=== PATIENT | male | born 1960 | race Caucasian/White ===

== ENCOUNTER 2020-09-25 07:57 | Outpatient (REF) | payer OTHER, SELFPAY ==
[2020-09-25 08:42] LABS: MANUAL DIFF FLAG NO
[2020-09-25 08:45] LABS: Basophils Percent Auto 0.7 % (0-2); Eosinophils Absolute Auto 0.1 X10*3/uL (0.0-0.4); Hematocrit 48.2 % (42-52); Hemoglobin 15.9 g/dl (14.0-18.0); Imm Gran Abs Auto 0.01 X10*3/uL (0.00-0.03); Imm Gran Pct Auto 0.2 % (0.0-0.4); Lymphocytes Absolute Auto 1.6 X10*3/uL (1.2-4.9); Lymphocytes Percent Auto 27.1 % (20-40); Mean Corpuscular Hemoglobin 31.9 pg (27.0-33.0); Mean Corpuscular Volume 96.8 fL (80-98); Mean Platelet Volume 10.2 fL (9.4-12.4); Monocytes Absolute Auto 0.5 X10*3/uL (0.1-1.2); Monocytes Percent Auto 8.9 % (2-11); Neutrophils Absolute Auto 3.7 X10*3/uL (2.0-8.3); Neutrophils Percent Auto 61.1 % (45-73); Platelet Count 176 X10*3/uL (160-400); Red Blood Count 4.98 X10*6/uL (4.60-5.80); Red Cell Distribution Width 12.3 % (11.0-16.0)
[2020-09-25 09:02] LABS: Glucose Urine UA NEG (NEG); Leukocyte Esterase Urine NEG (NEG); Nitrite Urine NEG (NEG); Specific Gravity - Urine >= 1.030 (1.005-1.025); Urine Blood NEG (NEG); Urine Ketones NEG (NEG); Urine Protein NEG (NEG-TRACE)
[2020-09-25 09:04] LABS: Appearance Urine CLEAR; Color Urine YELLOW
[2020-09-25 09:17] LABS: Alanine Aminotransferase 23 U/L (0-40); Albumin Level 4.8 g/dL (3.5-5.0); Alkaline Phosphatase 66 U/L (39-117); Anion Gap 12 (12-20); Aspartate Amino Transferase 21 U/L (5-37); Bilirubin Total 0.4 mg/dL (0.0-1.0); Blood Urea Nitrogen 9 mg/dL (9-16); Calcium 9.5 mg/dL (8.4-10.2); Carbon Dioxide 29 mmol/L (22-29); Chloride 105 mmol/L (96-108); Cholesterol 176 mg/dL; Estimated Glomerular Filt Rate > 60; Glucose Fasting 84 mg/dL (60-99); HDL Cholesterol 42 mg/dL; LDL Cholesterol Calculated 118 mg/dl; Potassium 4.5 mmol/l (3.3-5.1); Sodium 141 mmol/L (135-145); Triglycerides 81 mg/dL
== END 2020-09-25 07:58 | disposition home or self-care (01) ==
LOC: HO.LAB 07:57
PROVIDERS: PCP Internal Medicine; Visit Provider Internal Medicine
DX: D69.6 Thrombocytopenia, unspecified (principal); Z00.00 Encounter for general adult medical examination without abnormal findings
CPT/HCPCS: 36415; 80053; 80061; 81003; 85025

== ENCOUNTER 2021-11-14 10:36 | Outpatient (REF) | payer OTHER, SELFPAY ==
[2021-11-14 10:41] LABS: MANUAL DIFF FLAG NO
[2021-11-14 11:14] LABS: Basophils Percent Auto 0.8 % (0-2); Eosinophils Absolute Auto 0.2 X10*3/uL (0.0-0.4); Eosinophils Percent Auto 3.4 % (0-4); Hematocrit 45.5 % (42.0-52.0); Lymphocytes Absolute Auto 1.6 X10*3/uL (1.2-4.9); Lymphocytes Percent Auto 32.9 % (20-40); Mean Platelet Volume 10.9 fL (9.4-12.4); Monocytes Absolute Auto 0.5 X10*3/uL (0.1-1.2); Monocytes Percent Auto 9.9 % (2-11); Neutrophils Absolute Auto 2.6 x10*3/uL (2.0-8.3); Platelet Count 167 X10*3/uL (160-400); Red Blood Count 4.69 X10*6/uL (4.60-5.80); Red Cell Distribution Width 13.1 % (11.0-16.0)
[2021-11-14 11:22] LABS: Appearance Urine CLEAR; Color Urine YELLOW; Glucose Urine UA NEG (NEG); Leukocyte Esterase Urine NEG (NEG); Nitrite Urine NEG (NEG); PH 5.5 (5.0-8.0); Specific Gravity - Urine >= 1.030 (1.005-1.025); Urine Blood NEG (NEG); Urine Ketones 5 MG/DL (NEG); Urine Protein NEG (NEG-TRACE)
[2021-11-14 11:53] LABS: Alanine Aminotransferase 27 U/L (0-40); Albumin Level 4.3 g/dL (3.5-5.0); Alkaline Phosphatase 76 U/L (39-117); Anion Gap 11 (12-20); Aspartate Amino Transferase 25 U/L (5-37); Bilirubin Total 0.6 mg/dL (0.0-1.0); Blood Urea Nitrogen 10 mg/dL (9-16); Calcium 9.5 mg/dL (8.4-10.2); Carbon Dioxide 29 mmol/L (22-29); Chloride 104 mmol/L (96-108); Cholesterol 159 mg/dL; Estimated Glomerular Filt Rate > 60; Glucose Fasting 86 mg/dL (60-99); HDL Cholesterol 36 mg/dL; LDL Cholesterol Calculated 93 mg/dl; Potassium 4.4 mmol/L (3.3-5.1); Sodium 140 mmol/L (135-145); Total Protein 6.8 g/dL (6.5-8.0); Triglycerides 153 mg/dL
[2021-11-14 11:57] LABS: PSA,Total (Free>4and<10) 1.08 ng/mL (0.00-4.00)
== END 2021-11-14 10:37 | disposition home or self-care (01) ==
LOC: HO.LNP 10:36
PROVIDERS: Visit Provider Internal Medicine
DX: Z00.00 Encounter for general adult medical examination without abnormal findings (principal); Z12.5 Encounter for screening for malignant neoplasm of prostate; D69.6 Thrombocytopenia, unspecified
CPT/HCPCS: 80053; 80061; 81003; 84153; 85025

== ENCOUNTER 2022-11-24 10:57 | Outpatient (REF) | payer OTHER, SELFPAY ==
[2022-11-24 11:00] LABS: MANUAL DIFF FLAG NO
[2022-11-24 11:23] LABS: Basophils Absolute Auto 0.1 X10*3/uL (0.0-0.2); Basophils Percent Auto 1.1 % (0-2); Eosinophils Absolute Auto 0.2 X10*3/uL (0.0-0.4); Eosinophils Percent Auto 4.4 % (0-4); Hematocrit 46.6 % (42.0-52.0); Hemoglobin 15.6 g/dl (14.0-18.0); Imm Gran Abs Auto 0.01 X10*3/uL (0.00-0.03); Imm Gran Pct Auto 0.2 % (0.0-0.4); Lymphocytes Absolute Auto 1.6 X10*3/uL (1.2-4.9); Lymphocytes Percent Auto 33.6 % (20-40); Mean Corpuscular HGB Conc 33.5 g/dl (31.0-36.0); Mean Corpuscular Hemoglobin 32.4 pg (27.0-33.0); Mean Corpuscular Volume 96.9 fL (80.0-98.0); Mean Platelet Volume 10.8 fL (9.4-12.4); Monocytes Absolute Auto 0.4 X10*3/uL (0.1-1.2); Monocytes Percent Auto 8.9 % (2-11); Neutrophils Absolute Auto 2.5 x10*3/uL (2.0-8.3); Neutrophils Percent Auto 51.8 % (45-73); Platelet Count 165 X10*3/uL (160-400); Red Blood Count 4.81 X10*6/uL (4.60-5.80); Red Cell Distribution Width 12.5 % (11.0-16.0); White Blood Count 4.7 X10*3/uL (4.8-10.8)
[2022-11-24 11:55] LABS: Appearance Urine Clear; Color Urine Yellow; Glucose Urine UA Negative (Negative); Leukocyte Esterase Urine Trace (Negative); Nitrite Urine Negative (Negative); PH 7.5 (5.0-9.0); UMIC TRIGGER UACC YES; Urine Blood Negative (Negative); Urine Ketones Negative (Negative); Urine Protein Negative (Neg-Trace)
[2022-11-24 12:00] LABS: Bacteria Urine None Seen (None Seen); Hyaline Casts Urine 0-2 /LPF (0-2); RBC Urine 0-2 /HPF (0-2); Squamous Epithelial Cell Urine 0-2 /HPF (0-2); WBC Urine 0-5 /HPF (0-5)
[2022-11-24 12:33] LABS: Alanine Aminotransferase 28 U/L (0-40); Albumin Level 4.2 g/dL (3.5-5.0); Alkaline Phosphatase 73 U/L (39-117); Anion Gap 8 (12-20); Aspartate Amino Transferase 22 U/L (5-37); Bilirubin Total 1.2 mg/dL (0.0-1.0); Blood Urea Nitrogen 8 mg/dL (9-16); Calcium 9.2 mg/dL (8.4-10.2); Carbon Dioxide 30 mmol/L (22-29); Chloride 108 mmol/L (96-108); Cholesterol 121 mg/dL; Estimated Glomerular Filt Rate > 60; Glucose Fasting 90 mg/dL (60-99); HDL Cholesterol 37 mg/dL; LDL Cholesterol Calculated 72 mg/dl; Potassium 4.1 mmol/L (3.3-5.1); Sodium 142 mmol/L (135-145); Total Protein 6.3 g/dL (6.5-8.0); Triglycerides 63 mg/dL
[2022-11-24 12:37] LABS: PSA,Total (Free>4and<10) 0.81 ng/mL (0.00-4.00)
== END 2022-11-24 10:58 | disposition home or self-care (01) ==
LOC: HO.LNP 10:57
PROVIDERS: Visit Provider Internal Medicine
DX: Z00.00 Encounter for general adult medical examination without abnormal findings (principal); Z12.5 Encounter for screening for malignant neoplasm of prostate; D69.6 Thrombocytopenia, unspecified
CPT/HCPCS: 80053; 80061; 81001; 81003; 84153; 85025

== ENCOUNTER 2023-05-14 11:12 | Outpatient (REF) | payer OTHER, SELFPAY ==
[2023-05-14 13:39] LABS: Cholesterol 116 mg/dL; HDL Cholesterol 40 mg/dL; LDL Cholesterol Calculated 65 mg/dl; Triglycerides 57 mg/dL
[2023-05-14 13:40] LABS: Alanine Aminotransferase 34 U/L (0-40); Albumin Level 4.3 g/dL (3.5-5.0); Alkaline Phosphatase 67 U/L (39-117); Aspartate Amino Transferase 30 U/L (5-37); Bilirubin Direct 0.3 mg/dL (0.0-0.5); Bilirubin Total 0.7 mg/dL (0.0-1.0); Total Protein 6.8 g/dL (6.5-8.0)
== END 2023-05-14 11:13 | disposition home or self-care (01) ==
LOC: HO.LNP 11:12
PROVIDERS: Visit Provider Internal Medicine
DX: I65.29 Occlusion and stenosis of unspecified carotid artery (principal)
CPT/HCPCS: 80061; 80076

== ENCOUNTER 2023-11-30 11:06 | Outpatient (REF) | payer OTHER, SELFPAY ==
[2023-11-30 11:08] LABS: MANUAL DIFF FLAG NO
[2023-11-30 11:18] LABS: Appearance Urine Clear; Color Urine Yellow; Glucose Urine UA Negative (Negative); Leukocyte Esterase Urine Negative (Negative); Nitrite Urine Negative (Negative); Urine Blood Negative (Negative); Urine Ketones Negative (Negative); Urine Protein Negative (Neg-Trace)
[2023-11-30 11:20] LABS: Basophils Percent Auto 0.8 % (0-2); Eosinophils Absolute Auto 0.2 X10*3/uL (0.0-0.4); Eosinophils Percent Auto 3.7 % (0-4); Hematocrit 47.7 % (42.0-52.0); Hemoglobin 15.9 g/dl (14.0-18.0); Imm Gran Abs Auto 0.01 X10*3/uL (0.00-0.03); Imm Gran Pct Auto 0.2 % (0.0-0.4); Lymphocytes Absolute Auto 1.6 X10*3/uL (1.2-4.9); Lymphocytes Percent Auto 30.3 % (20-40); Mean Corpuscular HGB Conc 33.3 g/dl (31.0-36.0); Mean Corpuscular Hemoglobin 32.3 pg (27.0-33.0); Mean Corpuscular Volume 96.8 fL (80.0-98.0); Mean Platelet Volume 10.5 fL (9.4-12.4); Monocytes Absolute Auto 0.5 X10*3/uL (0.1-1.2); Monocytes Percent Auto 9.4 % (2-11); Neutrophils Absolute Auto 2.9 x10*3/uL (2.0-8.3); Neutrophils Percent Auto 55.6 % (45-73); Platelet Count 164 X10*3/uL (160-400); Red Blood Count 4.93 X10*6/uL (4.60-5.80); Red Cell Distribution Width 12.8 % (11.0-16.0); White Blood Count 5.1 X10*3/uL (4.8-10.8)
[2023-11-30 11:23] LABS: Bacteria Urine None Seen (None Seen); Hyaline Casts Urine 0-2 /LPF (0-2); RBC Urine 0-2 /HPF (0-2); Squamous Epithelial Cell Urine 0-2 /HPF (0-2); WBC Urine 0-5 /HPF (0-5)
[2023-11-30 11:28] LABS: Alanine Aminotransferase 26 U/L (0-40); Albumin Level 4.2 g/dL (3.5-5.0); Alkaline Phosphatase 74 U/L (39-117); Anion Gap 12 (12-20); Aspartate Amino Transferase 19 U/L (5-37); Bilirubin Total 0.7 mg/dL (0.0-1.0); Blood Urea Nitrogen 11 mg/dL (9-16); Calcium 9.3 mg/dL (8.4-10.2); Carbon Dioxide 29 mmol/L (22-29); Chloride 106 mmol/L (96-108); Cholesterol 124 mg/dL (<200); Estimated Glomerular Filt Rate > 60; Glucose Fasting 86 mg/dL (60-99); HDL Cholesterol 44 mg/dL (>40); LDL Cholesterol Calculated 66 mg/dL (<100); Potassium 4.3 mmol/L (3.3-5.1); Sodium 143 mmol/L (135-145); Total Protein 6.8 g/dL (6.5-8.0); Triglycerides 73 mg/dL (<150)
[2023-11-30 11:50] LABS: PSA,Total (Free>4and<10) 1.09 ng/mL (0.00-4.00)
== END 2023-11-30 11:07 | disposition home or self-care (01) ==
LOC: HO.LNP 11:06
PROVIDERS: Visit Provider Internal Medicine
DX: Z00.00 Encounter for general adult medical examination without abnormal findings (principal); Z12.5 Encounter for screening for malignant neoplasm of prostate; D69.6 Thrombocytopenia, unspecified
CPT/HCPCS: 80053; 80061; 81001; 84153; 85025

== ENCOUNTER 2024-06-06 10:15 | Outpatient (REF) | payer OTHER, SELFPAY ==
[2024-06-06 10:17] LABS: MANUAL DIFF FLAG NO
[2024-06-06 11:07] LABS: Basophils Absolute Auto 0.1 X10*3/uL (0.0-0.2); Basophils Percent Auto 1.2 % (0-2); Eosinophils Absolute Auto 0.2 X10*3/uL (0.0-0.4); Eosinophils Percent Auto 3.5 % (0-4); Hematocrit 47.3 % (42.0-52.0); Hemoglobin 15.3 g/dl (14.0-18.0); Imm Gran Abs Auto 0.01 X10*3/uL (0.00-0.03); Imm Gran Pct Auto 0.2 % (0.0-0.4); Lymphocytes Absolute Auto 1.7 X10*3/uL (1.2-4.9); Lymphocytes Percent Auto 33.6 % (20-40); Mean Corpuscular HGB Conc 32.3 g/dl (31.0-36.0); Mean Corpuscular Hemoglobin 31.9 pg (27.0-33.0); Mean Corpuscular Volume 98.7 fL (80.0-98.0); Mean Platelet Volume 10.8 fL (9.4-12.4); Monocytes Absolute Auto 0.5 X10*3/uL (0.1-1.2); Monocytes Percent Auto 10.4 % (2-11); Neutrophils Absolute Auto 2.6 x10*3/uL (2.0-8.3); Neutrophils Percent Auto 51.1 % (45-73); Platelet Count 162 X10*3/uL (160-400); Red Blood Count 4.79 X10*6/uL (4.60-5.80); White Blood Count 5.1 X10*3/uL (4.8-10.8)
[2024-06-06 11:28] LABS: Appearance Urine Clear; Color Urine Yellow; Glucose Urine UA Negative (Negative); Leukocyte Esterase Urine Negative (Negative); Nitrite Urine Negative (Negative); PH 5.5 (5.0-9.0); Urine Blood Negative (Negative); Urine Ketones Negative (Negative); Urine Protein Negative (Neg-Trace)
[2024-06-06 11:34] LABS: Alanine Aminotransferase 27 U/L (0-40); Albumin Level 4.2 g/dL (3.5-5.0); Alkaline Phosphatase 70 U/L (39-117); Anion Gap 9 (12-20); Aspartate Amino Transferase 22 U/L (5-37); Bilirubin Total 0.7 mg/dL (0.0-1.0); Blood Urea Nitrogen 10 mg/dL (9-16); Calcium 9.8 mg/dL (8.4-10.2); Carbon Dioxide 31 mmol/L (22-29); Chloride 107 mmol/L (96-108); Cholesterol 118 mg/dL (<200); Estimated Glomerular Filt Rate > 60; Glucose Fasting 100 mg/dL (60-99); HDL Cholesterol 45 mg/dL (>40); LDL Cholesterol Calculated 61 mg/dL (<100); Potassium 4.2 mmol/L (3.3-5.1); Sodium 143 mmol/L (135-145); Total Protein 6.7 g/dL (6.5-8.0); Triglycerides 64 mg/dL (<150)
[2024-06-06 11:35] LABS: Bacteria Urine None Seen (None Seen); Hyaline Casts Urine 0-2 /LPF (0-2); RBC Urine 0-2 /HPF (0-2); Squamous Epithelial Cell Urine 0-2 /HPF (0-2); WBC Urine 0-5 /HPF (0-5)
[2024-06-06 11:43] LABS: PSA,Total (Free>4and<10) 1.16 ng/mL (0.00-4.00)
== END 2024-06-06 10:16 | disposition home or self-care (01) ==
LOC: HO.LNP 10:15
PROVIDERS: Visit Provider Internal Medicine
DX: Z00.00 Encounter for general adult medical examination without abnormal findings (principal); D69.6 Thrombocytopenia, unspecified; Z12.5 Encounter for screening for malignant neoplasm of prostate
CPT/HCPCS: 80053; 80061; 81001; 84153; 85025

== ENCOUNTER 2024-11-28 10:27 | Outpatient (REF) | payer OTHER, SELFPAY ==
[2024-11-28 10:32] LABS: MANUAL DIFF FLAG NO
[2024-11-28 11:06] LABS: Basophils Absolute Auto 0.1 X10*3/uL (0.0-0.2); Basophils Percent Auto 0.9 % (0-2); Eosinophils Absolute Auto 0.1 X10*3/uL (0.0-0.4); Eosinophils Percent Auto 2.3 % (0-4); Hematocrit 47.1 % (42.0-52.0); Hemoglobin 15.5 g/dl (14.0-18.0); Imm Gran Abs Auto 0.01 X10*3/uL (0.00-0.03); Imm Gran Pct Auto 0.2 % (0.0-0.4); Lymphocytes Absolute Auto 1.6 X10*3/uL (1.2-4.9); Lymphocytes Percent Auto 27.8 % (20-40); Mean Corpuscular HGB Conc 32.9 g/dl (31.0-36.0); Mean Corpuscular Volume 97.1 fL (80.0-98.0); Mean Platelet Volume 10.6 fL (9.4-12.4); Monocytes Absolute Auto 0.4 X10*3/uL (0.1-1.2); Monocytes Percent Auto 7.8 % (2-11); Neutrophils Absolute Auto 3.5 x10*3/uL (2.0-8.3); Platelet Count 176 X10*3/uL (160-400); Red Blood Count 4.85 X10*6/uL (4.60-5.80); Red Cell Distribution Width 12.7 % (11.0-16.0); White Blood Count 5.7 X10*3/uL (4.8-10.8)
[2024-11-28 11:10] LABS: Appearance Urine Clear; Color Urine Yellow; Glucose Urine UA Negative (Negative); Leukocyte Esterase Urine Negative (Negative); Nitrite Urine Negative (Negative); Specific Gravity - Urine 1.025 (1.005-1.025); Urine Blood Negative (Negative); Urine Ketones Negative (Negative); Urine Protein Trace mg/dL (Neg-Trace)
[2024-11-28 11:13] LABS: Bacteria Urine None Seen (None Seen); Hyaline Casts Urine 0-2 /LPF (0-2); RBC Urine 0-2 /HPF (0-2); Squamous Epithelial Cell Urine 0-2 /HPF (0-2); WBC Urine 0-5 /HPF (0-5)
--- OUTSIDE RECORDS SUMMARY | 2024-11-28 11:23 | XMS_ITS ---
Author Organization Sam Paulino MD Address [address] [place] [id number] Care Team Providers Care Medical Dir Name Role Phone Sam Paulino Primary Care Provider Allergies No Known Allergies REASON FOR VISIT 6 month, c/o right shoulder pain x 2 months no injury Medications Medication SIG (Take, Route, Frequency, Duration) Notes Start Date End Date Status Atorvastatin Calcium 40 MG TAKE 1 TABLET BY MOUTH EVERY DAY for 30 Active Aspir-Low 81 MG 1 tablet Orally Once a day for 30 day(s) Active Vital Signs Blood pressure systolic 122 mm Hg 06/13/20 24 Blood pressure diastolic 58 mm Hg 024 Height 72 in 06/13/2024 Weight 252 lbs 06/13/2024 BMI 34.17 kg/m2 06/13/2024 weight is up 12 pounds since 05-21-23 Encounters Encounter Location Date Provider Diagnosis Sam Paulino MD [address] [place], [place] [phone] 06/13/2024 Sam Paulino Dysfunction of right rotator cuff M67.911 and Unintended weight gain R63.5 Assessments Encounter Date Diagnosis (ICD Code) Assessment Notes Treatment Notes Treatment Clinical Notes Section Notes 06/13/2024 Dysfunction of right rotator cuff (ICD-10 - M67.911) showed him exercises 06/13/2024 Unintended weight gain (ICD-10 - R63.5) is starting an exercise Plan Of Treatment Treatment Notes Assessment Notes Dysfunction of right rotator cuff showed him exercises Unintended weight gain is starting an ex ercise Next Appt Details Provider Name:Sam Philippe ier, 12/06/2024 08:30:00 AM, [address], [address], [place], [phone], Progress Notes * Alison DCOB:1960 ( 63 yo M)Acc No.[id number]:06/13/2024 Progress Notes Patient:?Farhan Dc Provider:?Sam Paulino MD :1960???Age:63 Y???Sex:Male Lobo e:06/13/2024 Address: [address], [place], [place] Subjective: * Chief Complaints: * ???6 monthC/o right shoulder pain x 2 months no injury * HPI: ???Symptom(s):? patient is a 63 yo male here for 6 month follow p visit,has pain in right shoulder to elbow. not to fingers. for the past 2 months, no specific injury. * ROS:?General/Constitutional:?Denies?Chills.?Denies?Fatigue.?Denies?Fever.?Denies?Headache.?ENT:?Patient denies?decreased sense of smell , any loss of taste , sore throat.?Denies?Sore throat.?Respiratory:?Denies?Cough.?Denies?Shortness of breath at rest.?Denies?Shortness of breath with exertion.?Gastrointestinal:?Denies?Diarrhea.?Denies?Nausea.?Musculoskeletal:?Patient denies?muscle aches.?Peripheral Vascular:?Patient denies?red and blue toes.? * Medical History:? * Surgical History:? * Hospitalization/Major Diagno stic Procedure:? * Medications:?TakingAspir-Low 81 MG Tablet Delayed Release 1 tablet Orally Once a dayAtorvastatin Calcium 40 MG Tablet TAKE 1 TABLET BY MOUTH EVERY DAY Medication List reviewed and reconciled with the patientTaking Aspir-Low 81 MG Tablet Delayed Release 1 tablet Orally Once a dayTaking Atorvastatin Calcium 40 MG Tablet TAKE 1 TABLET BY MOUTH EVERY DAY Medication List reviewed and reconciled with the patient * Allergies:?N.K.D.A.yes[Aller gies Verified] Objective: * Vitals:?Ht: 72, Wt:252, BMI: 34.17, BP:122/58 weight is up 12 pounds since 05-21-23. * Examination: ???General Examination: ?GENERAL APPEARANCE:? alert, well hydrated, in no distress .?HEAD:? normocephalic.?SKIN:? good turgor.?HEART:? regular rate and rhythm, no murmurs, rubs, gallops.?LUNGS:? no wheezes, rales, rhonchi, good air movement, clear to auscultation bilaterally.?MUSCULOSKELETAL:? good range of motion of shoulder.? Assessment: * Assessment: 1.?Dysfunction of right rota tor cuff - M67.911 (Primary)?2.?Unintended weight gain - R63.5? Plan: * Treatment: 2.?Unintended weight gain? Notes: is starting an exercise.?? * Procedure Codes:? * * Sign off status: Completed true * Provider:?Sam Paulino MD Date:?0 06/13/2024 Generated for Yakov briscoe/Ama/eTjammieitting on:?11/28/2024 11:22 AM EST History and Physical Notes * HPI (History of Present Illness) Category Sub-Category Detail Notes Category Not es Symptom(s) patient is a 63 yo male here for 6 month follow p visit,has pain in right shoulder to elbow. not to fingers. for the past 2 months, no specific injury Examination Category Sub-Category Detail Notes Category Not es General Examination GENERAL APPEARANCE: alert, w ell hydrated, in no distress HEAD: normocephalic HEART: regular rate and rhy thm, no murmurs, rubs, gallops LUNGS: no wheezes, rales, r honchi, good air movement, clear to auscultation bilaterally SKIN: good turgor MUSCULOSKELETAL: good range of motion of shoulder
--- OUTSIDE RECORDS SUMMARY | 2024-11-28 11:23 | XMS_ITS ---
Author Organization Sam Paulino MD Address [address] [place] [phone] Care Team Providers Care Photoradio Operator Name Role Phone Sam Paulino Primary Care Provider REASON FOR VISIT refill Medications Medication SIG (Take, Route, Frequency, Duration) Notes Start Date End Date Status Atorvastatin Calcium 40 MG TAKE 1 TABLET BY MOUTH EVERY DAY Orally Once a day for 30 days Active Encounters Encounter Location Date Provider Diagnosis Sam Paulino MD [address] [place] [address] [place] [phone] 09/05/2024 Sam Paulino Plan Of Treatment Medication Medication Name Sig Start Date Stop Date Notes Atorvastatin Calcium 40 MG TAKE 1 TABLET BY MOUTH EVERY DAY Orally Once a day for 30 days Next Appt Details Provider Name:Sam kruger, 12/06/2024 08:30:00 AM, [address] [place] [address], [address], [phone], Progress Notes * DAOMelchorNaomiOB:1960 ( 64 yo M)Acc No.[id number]:09/05/2024 Patient:?DaoFarhan :1960???Age:64 Y???Sex:Male Address:[address] [place], [address] * Refills? Refill Atorvastatin Calcium Tablet, 40 MG, Orally, 30 Tablet, TAKE 1 TABLET BY MOUTH EVERY DAY, Once a day, 30 days, Refills=12 * true * Date:? Generated for Yakov briscoe/Ama/Heavenitting on:?11/28/2024 11:22 AM EST
--- OUTSIDE RECORDS SUMMARY | 2024-11-28 11:23 | XMS_ITS | Patient Health Record ---
Author Organization Sam Paulino MD Address [address] [place], [place] [phone] Care Team Providers Care Marketing Executive Name Role Phone Sam Paulino Primary Care Provider [phone] Allergies No Known Allergies Results Component Value Reference Range Notes Complete Blood Count Auto Di ff Reviewed date:11/30/2023 12:31:11 PM Interpretation: Performing Lab:[facility], [address] [place] [phone] Notes/Report: White Blood Count 5.1 4.8-10.8 X10*3/uL Red Blood Count 4.93 4.60-5.80 X10*6/uL Hemoglobin 15.9 14.0-18.0 g/dl Hematocrit 47.7 42.0-52.0 % Mean Corpuscular Volume 96.8 80.0-98.0 fL Mean Corpuscular Hemoglobin 32.3 27.0-33.0 pg Mean Corpuscular HGB Conc 33.3 31.0-36.0 g/dl Red Cell Distribution Width 12.8 11.0-16.0 % Platelet Count 164 160-400 X10*3/uL Mean Platelet Volume 10.5 9.4-12.4 fL Neutrophils Percent Auto 55.6 45-73 % Imm Gran Pct Auto 0.2 0.0-0.4 % Lymphocytes Percent Auto 30.3 20-40 % Monocytes Percent Auto 9.4 2-11 % Eosinophils Percent Auto 3.7 0-4 % Basophils Percent Auto 0.8 0-2 % NRBC Pct Auto 0.0 0.0-0.2 /100WBC Neutrophils Absolute Auto 2.9 2.0-8.3 x10*3/u L Imm Gran Abs Auto 0.01 0.00-0.03 X10*3/uL Lymphocytes Absolute Auto 1.6 1.2-4.9 X10*3/u L Monocytes Absolute Auto 0.5 0.1-1.2 X10*3/uL Eosinophils Absolute Auto 0.2 0.0-0.4 X10*3/u L Basophils Absolute Auto 0.0 0.0-0.2 X10*3/uL NRBC Abs Auto 0.000 0.0-0.012 X10*3/uL Comprehensive Petal. Panel Fa st Reviewed date:11/30/2023 12:30:37 PM Interpretation: Performing Lab:[address] [phone] Notes/Report: Sodium 143 135-145 mmol/L Potassium 4.3 3.3-5.1 mmol/L Chloride 106 96-108 mmol/L Carbon Dioxide 29 22-29 mmol/L Anion Gap 12 12-20 Blood Urea Nitrogen 11 9-16 mg/dL Creatinine 0.80 0.5-1.4 mg/dL Estimated Glomerular Filt Rate > 60 NOTE: For -Micronesian individuals, multiply the result by 1.210. Chronic Kidney Disease: Estimated GFR < 60 mL/min/1.73m2 Severe Kidney Disease: Estimated GFR < 15 mL/min/1.73m2 Glucose Fasting 86 60-99 mg/dL Calcium 9.3 8.4-10.2 mg/dL Bilirubin Total 0.7 0.0-1.0 mg/dL Aspartate Amino Transferase 19 5-37 U/L Alanine Aminotransferase 26 0-40 U/L Total Protein 6.8 6.5-8.0 g/dL Albumin Level 4.2 3.5-5.0 g/dL Alkaline Phosphatase 74 39-117 U/L Lipid Panel Reviewed date:11/30/2023 12:03:49 PM Interpretation: Performing Lab:[address] [phone] Notes/Report: Triglycerides 73 <150 mg/dL Desirable Triglyceride: less than 150 mg/dL Borderline High Triglyceride 150-199 mg/dL High Triglyceride: 200-499 mg/dL Very High Triglyceride: greater than or equal to 5OO mg/dL Cholesterol 124 <200 mg/dL Desirable Cholesterol: less than 200 mg/dL Borderline High Cholesterol: 200-239 mg/dL High Cholesterol: greater than 239 mg/dL LDL Cholesterol Calculated 66 <100 mg/dL Desirable LDL: less than 100 mg/dL Near Optimal/Above Optimal LDL: 110-129 mg/dL Borderline High LDL: 130-159 mg/dL High LDL: 160-189 mg/dL Very High LDL: greater than or equal to 190 mg/dL HDL Cholesterol 44 >40 mg/dL Desirable HDL: greater than 40 mg/dL Note: This HDL assay may give artificially low results in patients with liver disease. PSA,Total (Free>4and<10) Reviewed date:11/30/2023 12:04:32 PM Interpretation: Performing Lab:[address] [phone] Notes/Report: PSA,Total (Free>4and<10) 1.09 0.00-4.00 ng/mL A Free PSA was not performed: The percentage of Free PSA can be used to enhance the differentiation of prostate cancer from benign prostatic disease in subjects whose PSA levels are between 4.0 and 10.0 ng/mL. For subjects whose PSA levels are below 4.0 or above 10.0 ng/mL, the risk of prostate cancer is determined on the basis of the PSA alone. Therefore the % Free PSA is recommended only for those subjects whose PSA levels are between 4.0 and 10.0 ng/mL. PSA methodology: Murry Alinity i Chemiluminescent Microparticle Immunoassay (CMIA) UA ClnCatch+Micro w/rflx Cul t Reviewed date:11/30/2023 12:18:13 PM Interpretation: Performing Lab:[address] [phone] Notes/Report: Urine, Clean Catch Color Urine Yellow Appearance Urine Clear PH 7.0 5.0-9.0 Glucose Urine UA Negative Negative mg/dL Urine Blood Negative Negative Specific [place] - Urine 1.020 1.005-1.025 Urine Protein Negative Neg-Trace mg/dL Urine Ketones Negative Negative mg/dL Nitrite Urine Negative Negative Leukocyte Esterase Urine Negative Negative RBC Urine 0-2 0-2 /HPF WBC Urine 0-5 0-5 /HPF Squamous Epithelial Cell Urine 0-2 0-2 /HPF Bacteria Urine None Seen None Seen Hyaline Casts Urine 0-2 0-2 /LPF Occult Blood, Stool, Guaiac Reviewed date:02/02/2024 03:53:07 PM Interpretation:Negative Performing Lab: Notes/Report: Negative Occult Blood, Stool, Guaiac Neg Complete Blood Count Auto Di ff Reviewed date:06/06/2024 12:40:14 PM Interpretation: Performing Lab:[facility], [address] [place] [phone] Notes/Report: White Blood Count 5.1 4.8-10.8 X10*3/uL Red Blood Count 4.79 4.60-5.80 X10*6/uL Hemoglobin 15.3 14.0-18.0 g/dl Hematocrit 47.3 42.0-52.0 % Mean Corpuscular Volume 98.7 80.0-98.0 fL Mean Corpuscular Hemoglobin 31.9 27.0-33.0 pg Mean Corpuscular HGB Conc 32.3 31.0-36.0 g/dl Red Cell Distribution Width 13.0 11.0-16.0 % Platelet Count 162 160-400 X10*3/uL Mean Platelet Volume 10.8 9.4-12.4 fL Neutrophils Percent Auto 51.1 45-73 % Imm Gran Pct Auto 0.2 0.0-0.4 % Lymphocytes Percent Auto 33.6 20-40 % Monocytes Percent Auto 10.4 2-11 % Eosinophils Percent Auto 3.5 0-4 % Basophils Percent Auto 1.2 0-2 % NRBC Pct Auto 0.0 0.0-0.2 /100WBC Neutrophils Absolute Auto 2.6 2.0-8.3 x10*3/u L Imm Gran Abs Auto 0.01 0.00-0.03 X10*3/uL Lymphocytes Absolute Auto 1.7 1.2-4.9 X10*3/u L Monocytes Absolute Auto 0.5 0.1-1.2 X10*3/uL Eosinophils Absolute Auto 0.2 0.0-0.4 X10*3/u L Basophils Absolute Auto 0.1 0.0-0.2 X10*3/uL NRBC Abs Auto 0.000 0.0-0.012 X10*3/uL Comprehensive Petal. Panel Fa Reviewed date:06/06/2024 12:42:10 PM Interpretation: Performing Lab:[facility], [address] [place] [address] Notes/Report: Sodium 143 135-145 mmol/L Potassium 4.2 3.3-5.1 mmol/L Chloride 107 96-108 mmol/L Carbon Dioxide 31 22-29 mmol/L Anion Gap 9 12-20 Blood Urea Nitrogen 10 9-16 mg/dL Creatinine 0.89 0.5-1.4 mg/dL Estimated Glomerular Filt Rate > 60 NOTE: For -Micronesian individuals, multiply the result by 1.210. Chronic Kidney Disease: Estimated GFR < 60 mL/min/1.73m2 Severe Kidney Disease: Estimated GFR < 15 mL/min/1.73m2 Glucose Fasting 100 60-99 mg/dL A fasting glucose from 100-125 mg/dl is considered impaired (pre-diabetes). Calcium 9.8 8.4-10.2 mg/dL Bilirubin Total 0.7 0.0-1.0 mg/dL Aspartate Amino Transferase 22 5-37 U/L Alanine Aminotransferase 27 0-40 U/L Total Protein 6.7 6.5-8.0 g/dL Albumin Level 4.2 3.5-5.0 g/dL Alkaline Phosphatase 70 39-117 U/L Lipid Panel Reviewed date:06/06/2024 12:40:22 PM Interpretation: Performing Lab:[facility], [address] [place] [phone] Notes/Report: Triglycerides 64 <150 mg/dL Desirable Triglyceride: less than 150 mg/dL Borderline High Triglyceride 150-199 mg/dL High Triglyceride: 200-499 mg/dL Very High Triglyceride: greater than or equal to 5OO mg/dL Cholesterol 118 <200 mg/dL Desirable Cholesterol: less than 200 mg/dL Borderline High Cholesterol: 200-239 mg/dL High Cholesterol: greater than 239 mg/dL LDL Cholesterol Calculated 61 <100 mg/dL Desirable LDL: less than 100 mg/dL Near Optimal/Above Optimal LDL: 110-129 mg/dL Borderline High LDL: 130-159 mg/dL High LDL: 160-189 mg/dL Very High LDL: greater than or equal to 190 mg/dL HDL Cholesterol 45 >40 mg/dL Desirable HDL: greater than 40 mg/dL Note: This HDL assay may give artificially low results in patients with liver disease. PSA,Total (Free>4and<10) Reviewed date:06/06/2024 12:38:37 PM Interpretation: Performing Lab:[address] [phone] Notes/Report: PSA,Total (Free>4and<10) 1.16 0.00-4.00 ng/mL A Free PSA was not performed: The percentage of Free PSA can be used to enhance the differentiation of prostate cancer from benign prostatic disease in subjects whose PSA levels are between 4.0 and 10.0 ng/mL. For subjects whose PSA levels are below 4.0 or above 10.0 ng/mL, the risk of prostate cancer is determined on the basis of the PSA alone. Therefore the % Free PSA is recommended only for those subjects whose PSA levels are between 4.0 and 10.0 ng/mL. PSA methodology: Murry Alinity i Chemiluminescent Microparticle Immunoassay (CMIA) UA ClnCatch+Micro w/rflx Cul t Reviewed date:06/06/2024 12:42:50 PM Interpretation: Performing Lab:[address] [phone] Notes/Report: Urine, Clean Catch Color Urine Yellow Appearance Urine Clear PH 5.5 5.0-9.0 Glucose Urine UA Negative Negative mg/dL Urine Blood Negative Negative Specific [place] - Urine 1.020 1.005-1.025 Urine Protein Negative Neg-Trace mg/dL Urine Ketones Negative Negative mg/dL Nitrite Urine Negative Negative Leukocyte Esterase Urine Negative Negative RBC Urine 0-2 0-2 /HPF WBC Urine 0-5 0-5 /HPF Squamous Epithelial Cell Urine 0-2 0-2 /HPF Bacteria Urine None Seen None Seen Hyaline Casts Urine 0-2 0-2 /LPF Complete Blood Count Auto Di ff (Not yet reviewed by provider) Interpretation: Performing Lab:[address] [phone] Notes/Report: White Blood Count 5.7 4.8-10.8 X10*3/uL Red Blood Count 4.85 4.60-5.80 X10*6/uL Hemoglobin 15.5 14.0-18.0 g/dl Hematocrit 47.1 42.0-52.0 % Mean Corpuscular Volume 97.1 80.0-98.0 fL Mean Corpuscular Hemoglobin 32.0 27.0-33.0 pg Mean Corpuscular HGB Conc 32.9 31.0-36.0 g/dl Red Cell Distribution Width 12.7 11.0-16.0 % Platelet Count 176 160-400 X10*3/uL Mean Platelet Volume 10.6 9.4-12.4 fL Neutrophils Percent Auto 61.0 45-73 % Imm Gran Pct Auto 0.2 0.0-0.4 % Lymphocytes Percent Auto 27.8 20-40 % Monocytes Percent Auto 7.8 2-11 % Eosinophils Percent Auto 2.3 0-4 % Basophils Percent Auto 0.9 0-2 % NRBC Pct Auto 0.0 0.0-0.2 /100WBC Neutrophils Absolute Auto 3.5 2.0-8.3 x10*3/u L Imm Gran Abs Auto 0.01 0.00-0.03 X10*3/uL Lymphocytes Absolute Auto 1.6 1.2-4.9 X10*3/u L Monocytes Absolute Auto 0.4 0.1-1.2 X10*3/uL Eosinophils Absolute Auto 0.1 0.0-0.4 X10*3/u L Basophils Absolute Auto 0.1 0.0-0.2 X10*3/uL NRBC Abs Auto 0.000 0.0-0.012 X10*3/uL UA ClnCatch+Micro w/rflx Cul t (Not yet reviewed by provider) Interpretation: Performing Lab:[facility], [address] [place] [phone] Notes/Report: Urine, Clean Catch Color Urine Yellow Appearance Urine Clear PH 6.0 5.0-9.0 Glucose Urine UA Negative Negative mg/dL Urine Blood Negative Negative Specific [place] - Urine 1.025 1.005-1.025 Urine Protein Trace Neg-Trace mg/dL Urine Ketones Negative Negative mg/dL Nitrite Urine Negative Negative Leukocyte Esterase Urine Negative Negative RBC Urine 0-2 0-2 /HPF WBC Urine 0-5 0-5 /HPF Squamous Epithelial Cell Urine 0-2 0-2 /HPF Bacteria Urine None Seen None Seen Hyaline Casts Urine 0-2 0-2 /LPF Reason For Referral No Information Medications Medication SIG (Take, Route, Frequency, Duration) Notes Start Date End Date Status Atorvastatin Calcium 40 MG TAKE 1 TABLET BY MOUTH EVERY DAY Orally Once a day for 30 days Active Aspir-Low 81 MG 1 tablet Orally Once a day for 30 day(s) Active Immunizations Vaccine Route Administration Date Status Comme nts Flu Vaccine Unknown 08/04/2017 Administered pt was give n the vaccine at work. Flu Vaccine Unknown 08/02/2018 Administered [facility] @ work Fluarix Quadrivalent Unknown 07/25/2019 Administered [facility] Fluarix Quadrivalent Unknown 09/03/2020 Administered At work [facility] SARS-COV-2 Moderna Unknown 10/13/2020 Administered SARS-COV-2 Moderna Unknown 11/10/2020 Administered Fluarix Quadrivalent Unknown 08/10/2021 Administered Fluarix Quadrivalent Unknown 07/29/2022 Administered [facility] Shingrix Unknown 12/28/2022 [facility]ered [facility] Shingrix Unknown 05/22/2023 Administered [facility] Social History Tobacco Use: Social History Observation Description Date Details (start date - stop date) Never Smoker NA - NA Tobacco Use/Smoking Question Answer Notes Patient is a nonsmoker Additional Findings: Tobacco Non-User Cu rrent non-smoker, currently using no form of tobacco Alcohol Screen Question Answer Notes Did you have a drink contain ing alcohol in the past year? Yes How often did you have a dri nk containing alcohol in the past year? Monthly or less (1 point) How many drinks did you have on a typical day when you were drinking in the past year? 1 or 2 drinks (0 point) How often did you have 6 or more drinks on one occasion in the past year? Never (0 point) Points 1 Interpretation Negative Problems Problem Type SNOMED Code ICD Code Onset Dates Problem Status W/U Status Risk Notes Problem 229109296 Thrombocytopenia (D69.6) Active confirmed Problem 9727924 Primary insomnia (F51.01) Active confirmed Problem 13709007 Lumbar disc dise ase (M51.9) Active confirmed Problem Carotid artery stenosis (28698079) Carotid stenosis (I65.29) Active confirmed Problem 49915066 FOX (obstructive sleep apnea) (G47.33) Active confirmed Problem 391426527 BMI 32.0-32.9,ad ult (Z68.32) Active confirmed Problem Angina of effort (130215413) Angina of effort (I20.8) Active confirmed Problem 659781238 History of adenomatous polyp of colon (Z86.010) Active confirmed Vital Signs Blood pressure diastolic 58 mm Hg 06/13/2024 javy ght is up 12 pounds since 05-21-23 Height 72 in 06/13/2024 weight is up 12 pounds since 05-21-23 Blood pressure systolic 122 mm Hg 06/13/2024 weig ht is up 12 pounds since 05-21-23 Weight 252 lbs 06/13/2024 weight is up 12 pounds since 05-21-23 BMI 34.17 kg/m2 06/13/2024 weight is up 12 pounds since 05-21-23 Encounters Encounter Location Date Provider Diagnosis Sam Paulino MD [address] [place] [phone] 11/30/2023 Sam Paulino Blood tests for rout ine general physical examination Z00.00 and Thrombocytopenia D69.6 Sam Paulino MD [address] [place] [phone] 06/06/2024 Sam Paulino Blood tests for rout ine general physical examination Z00.00 and Thrombocytopenia D69.6 Sma Paulino MD [address] [phone] 11/28/2024 Sam Paulino Routine lab draw Z01 .89 and Thrombocytopenia D69.6 Sam Paulino MD [address] [phone] 12/03/2023 Sam Paulino Thrombocytopenia D69 .6 ; Annual physical exam Z00.00 ; FOX (obstructive sleep apnea) G47.33 ; Lumbar disc disease M51.9 ; Colon cancer screening Z12.11 and Depression screening Z13.31 Sam Paulino MD [address] [place] [phone] 06/13/2024 Sam Paulino Dysfunction of right rotator cuff M67.911 and Unintended weight gain R63.5 Sam Paulino MD [address] [phone] 09/05/2024 Sam Paulino Assessments Encounter Date Diagnosis (ICD Code) Assessment Notes Treatment Notes Treatment Clinical Notes Section Notes 11/30/2023 Blood tests for routine general physical examination (ICD-10 - Z00.00) 11/30/2023 Thrombocytopenia (ICD-10 - D69.6) 06/06/2024 Blood tests for routine general physical examination (ICD-10 - Z00.00) 06/06/2024 Thrombocytopenia (ICD-10 - D69.6) 11/28/2024 Routine lab draw (ICD-10 - Z01.89) 12/03/2023 Thrombocytopenia (ICD-10 - D69.6) has resolved, will continue to monitor 12/03/2023 Annual physical exam (ICD-10 - Z00.00) labs reviewed and discussed with patient 06/13/2024 Dysfunction of right rotator cuff (ICD-10 - M67.911) showed him exercises 06/13/2024 Unintended weight gain (ICD-10 - R63.5) is starting an exercise 11/28/2024 Thrombocytopenia (ICD-10 - D69.6) 12/03/2023 FOX (obstructive sleep apnea) (ICD-10 - G47.33) using cpap machine 12/03/2023 Lumbar disc disease (ICD-10 - M51.9) to get out of car when riding 12/03/2023 Colon cancer screening (ICD-10 - Z12.11) guaiac negative 12/03/2023 Depression screening (ICD-10 - Z13.31) negative screen Plan Of Treatment Pending Test Test Name Order Date Electrocardiogram (EKG) 08/20/2017 Electrocardiogram (EKG) 09/02/2018 US CAROTID BILATERAL DOPPLER 11/18/2021 ECHO 08/21/2017 Complete Blood Count Auto Diff 5 Comprehensive Petal. Panel Fast 5 Lipid Panel 11/28/2024 PSA,Total (Free>4and<10) 11/28/2024 UA ClnCatch+Micro w/rflx Cult 11/28/2024 Next Appt Details Provider Name:Sam kruger, 12/06/2024 08:30:00 AM, [address] [facility], [address], [place], [place], [phone], Insurance Providers Payer Name Payer Address Payer Phone Subscriber Number Group Number Insured Name Patient Relationship to Insured Coverage Start Date Coverage End Date [address] [place] [phone] [id number] Farhan Dc Self - patient is the insured Medical (General) History Medical History History ICD Code colonoscopy [address] Odilon Alvarez - repeat in 5 years(2021) colonoscopy 2021. repeat in 5 years
--- OUTSIDE RECORDS SUMMARY | 2024-11-28 11:23 | XMS_ITS ---
Author Organization Sam Paulino MD Address [address] [place], [place] [id number] Care Team Providers Care Licensed Esthetician Name Role Phone Sam Paulino Primary Care Provider [phone] Results Component Value Reference Range Notes Complete Blood Count Auto Di ff (Not yet reviewed by provider) Interpretation: Performing Lab:[facility], [address] [place] [phone] Notes/Report: White Blood Count 5.7 4.8-10.8 X10*3/uL [...] (Not yet reviewed by provider) Interpretation: Performing Lab:[facility], [address] [place] [phone] Notes/Report: Urine, Clean Catch Color Urine Yellow Appearance Urine Clear PH 6.0 5.0-9.0 Glucose Urine UA Negative Negative mg/dL Urine Blood Negative Negative Specific [place] - Urine 1.025 1.005-1.025 Urine Protein Trace Neg-Trace mg/dL Urine Ketones Negative Negative mg/dL Nitrite Urine Negative Negative Leukocyte Esterase Urine Negative Negative RBC Urine 0-2 0-2 /HPF WBC Urine 0-5 0-5 /HPF Squamous Epithelial Cell Urine 0-2 0-2 /HPF Bacteria Urine None Seen None Seen Hyaline Casts Urine 0-2 0-2 /LPF REASON FOR VISIT FASTING LABS Encounters Encounter Location Date Provider Diagnosis Sam Paulino MD [address] [facility] [address] [place], [place] [phone] 11/28/2024 Sam Paulino Routine lab draw Z01 .89 and Thrombocytopenia D69.6 Assessments Encounter Date Diagnosis (ICD Code) Assessment Notes Treatment Notes Treatment Clinical Notes Section Notes 11/28/2024 Routine lab draw (ICD-10 - Z01.89) 11/28/2024 Thrombocytopenia (ICD-10 - D69.6) Plan Of Treatment Pending Test Test Name Order Date Complete Blood Count Auto Diff 5 Comprehensive [place]ell. Panel Fast 5 Lipid Panel 11/28/2024 PSA,Total (Free>4and<10) 11/28/2024 UA ClnCatch+Micro w/rflx Cult 11/28/2024 Next Appt Details Provider Name:Sam Philippe ier, 12/06/2024 08:30:00 AM, [address], [address], [place], [place], [phone], Progress Notes * Alison DCOB:1960 ( 64 yo M)Acc No.[id number]:11/28/2024 Progress Note Patient:Farhan BELTRAN Provider:?Sam Paulino MD :1960???Age:64 Y???Sex:Male Lobo e:11/28/2024 Address: [address] [id number] Subjective: * Chief Complaints: * ???1. FASTING LABS. * Medical History:? Objective: * Vitals:? Assessment: * Assessment: 1.?Routine lab draw - Z01.89 (Primary)???2.?Thrombocytopenia - D69.6??? Plan: * Treatment: 2.?Thrombocytopenia?LAB: Complete Blood Count Auto Diff (Collection Date & Time - 11/28/2024 07:15 AM) ?LAB: Comprehensive [place]ell. Panel Fast ?LAB: Lipid Panel ?LAB: PSA,Total (Free>4and<10) ?LAB: UA ClnCatch+Micro w/rflx Cult (Collection Date & Time - 11/28/2024 07:15 AM) * Procedure Codes:?28737 VENIP UNCT, ROUTINE* * * The named appointment provid er may or may not be the originator of this progress note, and it is not deemed complete until electronically signed by the appointment provider. Sign off status: Pending * Provider:?Sam Paulino MD Date:?0 11/28/2024 Generated for Yakov briscoe/Ama/eTjonassmitting on:?11/28/2024 11:23 AM EST
[2024-11-28 11:34] LABS: Alanine Aminotransferase 32 U/L (0-40); Albumin Level 4.3 g/dL (3.5-5.0); Alkaline Phosphatase 72 U/L (39-117); Anion Gap 11 (12-20); Aspartate Amino Transferase 29 U/L (5-37); Bilirubin Total 0.8 mg/dL (0.0-1.0); Blood Urea Nitrogen 11 mg/dL (9-16); Calcium 9.3 mg/dL (8.4-10.2); Carbon Dioxide 27 mmol/L (22-29); Chloride 107 mmol/L (96-108); Cholesterol 114 mg/dL (<200); Estimated Glomerular Filt Rate > 60; Glucose Fasting 88 mg/dL (60-99); HDL Cholesterol 39 mg/dL (>40); LDL Cholesterol Calculated 61 mg/dL (<100); Potassium 3.8 mmol/L (3.3-5.1); Sodium 141 mmol/L (135-145); Total Protein 7.1 g/dL (6.5-8.0); Triglycerides 70 mg/dL (<150)
[2024-11-28 11:49] LABS: PSA,Total (Free>4and<10) 0.86 ng/mL (0.00-4.00)
== END 2024-11-28 10:28 | disposition home or self-care (01) ==
LOC: HO.LNP 10:27
PROVIDERS: Visit Provider Internal Medicine
DX: Z01.89 Encounter for other specified special examinations (principal); D69.6 Thrombocytopenia, unspecified; Z12.5 Encounter for screening for malignant neoplasm of prostate
CPT/HCPCS: 80053; 80061; 81001; 84153; 85025

== ENCOUNTER 2025-06-05 07:15 | Outpatient (REF) | payer OTHER, SELFPAY ==
--- OUTSIDE RECORDS SUMMARY | 2024-12-06 04:30 | XMS_ITS ---
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 Name Role Phone Sam Paulino Primary Care Provider [phone] Allergies No Known Allergies Results Component Value Reference Range Notes Occult Blood, Stool, Guaiac Reviewed date:12/06/2024 11:05:39 AM Interpretation:Negative Performing Lab: Notes/Report: Negative Occult Blood, Stool, Guaiac Neg REASON FOR VISIT ANNUAL EXAM Medications Medication SIG (Take, Route, Frequency, Duration) Notes Start Date End Date Status Atorvastatin Calcium 40 MG TAKE 1 TABLET BY MOUTH EVERY DAY Orally Once a day for 30 days Active Aspir-Low 81 MG 1 tablet Orally Once a day for 30 day(s) Active Magnesium 250 MG 1 tablet with a meal Orally Once a day Active Social History Tobacco Use: Social History Observation [...] Never (0 point) Points 1 Interpretation Negative Vital Signs Blood pressure systolic 132 mm Hg 12/06/19 25 Blood pressure diastolic 60 mm Hg 025 Height 72 in 12/06/2024 Weight 245 lbs 12/06/2024 BMI 33.22 kg/m2 12/06/2024 weight is down 7 pounds [facility] e 06-13-24 Encounters Encounter Location Date Provider Diagnosis Sam Paulino MD [address] [place] [address] [place] [phone] 12/06/2024 Sam Paulino Lumbar disc disease M51.9 ; Annual physical exam Z00.00 ; History of adenomatous polyp of colon Z86.010 ; Colon cancer screening Z12.11 and Depression screening Z13.31 Assessments Encounter Date Diagnosis (ICD Code) Assessment Notes Treatment Notes Treatment Clinical Notes Section Notes 12/06/2024 Lumbar disc disease (ICD-10 - M51.9) is the probable cause of the difficulty with lifting leg at times. does not want to do anything about it 12/06/2024 Annual physical exam (ICD-10 - Z00.00) labs reviewed abd discussed with patient 12/06/2024 History of adenomatous polyp of colon (ICD-10 - Z86.010) due for colonoscopy in 2 12/06/2024 Colon cancer screening (ICD-10 - Z12.11) guaiac negative 12/06/2024 Depression screening (ICD-10 - Z13.31) negative screen Plan Of Treatment Treatment Notes Assessment Notes Lumbar disc disease is the probable caus e of the difficulty with lifting leg at times. does not want to do anything about it Annual physical exam labs reviewed abd d iscussed with patient History of adenomatous polyp of colon du e for colonoscopy in 2 Colon cancer screening guaiac negative Depression screening negative screen Next Appt Details Follow Up: 1 Year, Reason: Provider Name:Sam kruger, 12/01/2025 07:00:00 AM, [address] [place] [address], [address] [place] [address], [phone], Provider Name:Sam kruger, 12/08/2025 08:30:00 AM, [address] [place] [address], [address] [place] [address], [phone], Progress Notes * Alison DCOB:1960 ( 64 yo M)Acc No.[id number]:12/06/2024 Progress Notes Patient: Farhan RODRIGUEZ Provider: Oren Paulino MD :1960 A ge:64 Y S ex:Male Date:12/06/2024 Address:[id number] Subjective: * Chief Complaints: * A NNUAL EXAM * HPI: D epression Screening: PHQ-9 L ittle interest or pleasure in doing things N ot at all, F eeling down, depressed, or hopeless N ot at all, T rouble falling or staying asleep, or sleeping too much N ot at all, F eeling tired or having little energy N ot at all, P oor appetite or overeating N ot at all, F eeling bad about yourself or that you are a failure, or have let yourself or your family down N ot at all, T rouble concentrating on things, such as reading the newspaper or watching television N ot at all, M oving or speaking so slowly that other people could have noticed; or the opposite, being so fidgety or restless that you have been moving around a lot more than usual N ot at all, T houghts that you would be better off or of hurting yourself in some way N ot at all, T otal Score 0 . I nterpretation and Intervention D epression Screening Findings N egative, F ollow-Up for Depression : review of PHQ-9 found negative result, no follow-up needed. C ommunication Needs: Communication Needs D oes the patient have a hearing impairment N o, D oes the patient have a vision impairment? Y es, I f yes, what is the vision impairment? G lasses, D oes the patient have a cognition impairment? N o. F all Risk: History H ave you had any falls with injury in the past year? N o, H ave you had two or more falls in the past year? N o. S DAVID Questions: SDOH Questions I n the past year have you been worried about losing housing? N o, I n the past year have you or any family members you live with been unable to get any of the following when it was really needed? Check all that apply: N one. S ymptom(s): patient is a 64 yo male here for yearly evaluation with review of recent labs and follow up of chronic issues, / has a feeling in leg when he tries to take his boot off in the or. also with weakness. * ROS: G eneral/Constitutional: Patient denies f atigue, headache. C hange in appetite?denies. C hills d enies. F ever d enies. O phthalmologic: Blurred vision d enies. D ischarge d enies. P ain d enies. E NT: Patient denies d ecreased sense of smell, any loss of taste, sore throat. D ecreased hearing d enies. S ore throat d enies. S wollen glands?denies. E ndocrine: Cold intolerance d enies. E xcessive thirst d enies. H eat intolerance d enies. W eight loss d enies. R espiratory: Cough d enies. S hortness of breath at rest d enies. S hortness of breath with exertion d enies. W heezing d enies. C ardiovascular: Chest pain at rest d enies. C hest pain with exertion?denies. I rregular heartbeat d enies. S hortness of breath d enies. ? G astrointestinal: Abdominal pain d enies. C hange in bowel habits d enies. D iarrhea d enies. N ausea d enies. R ectal bleeding d enies. V omiting d enies . G enitourinary: Blood in urine d enies. D ifficulty urinating d enies. F requent urination d enies. M usculoskeletal: Patient denies m uscle aches. P ainful joints d enies. W eakness d enies. P eripheral Vascular: Patient denies r ed and blue toes. S kin: Dry skin d enies. I tching d enies. D enies?Mole(s), changes in moles, new moles or any lesions of concern. D enies P hotosensitivity. R thai d enies. N eurologic: Dizziness d enies. F ainting d enies. H eadache?denies. * Medical History: * Surgical History: * Hospitalization/Major Diagno stic Procedure: * Family History: F ather: 84 yrs, diagnosed with Hypertension. M other: alive 82 yrs. 2 brother(s) . 1 son(s) , 1 daughter(s) . . Mother- Healthy, No pertinent family medical history, Denies mental health/substance abuse family history, Denies mental health/substance abuse family history, No pertinent family medical history. * Social History: T obacco Use: T obacco Use/Smoking P atient is a n onsmoker, A dditional Findings: Tobacco Non-User C urrent non-smoker, currently using no form of tobacco. D rugs/Alcohol: A lcohol Screen D id you have a drink containing alcohol in the past year? Y es, H ow often did you have a drink containing alcohol in the past year? M onthly or less (1 point), H ow many drinks did you have on a typical day when you were drinking in the past year? 1 or 2 drinks (0 point), H ow often did you have 6 or more drinks on one occasion in the past year? N ever (0 point), P oints 1 , I nterpretation N egative. M iscellaneous: C affeine: yes, frequency: 3 cans of coke a week. Children: yes. Community involvements: no. Exercise: yes, walks QOD for 45 minutes. Housing: owning. Living with: spouse. Marital status: . Occupation: works full-time. Pets: none. Travel outside of the [place]: no. * Medications: T akingMagnesium 250 MG Tablet 1 tablet with a meal Orally Once a day Aspir-Low 81 MG Tablet Delayed Release 1 tablet Orally Once a day Atorvastatin Calcium 40 MG Tablet TAKE 1 TABLET BY MOUTH EVERY DAY Orally Once a day Medication List reviewed and reconciled with the patientTaking Magnesium 250 MG Tablet 1 tablet with a meal Orally Once a day Taking Aspir-Low 81 MG Tablet Delayed Release 1 tablet Orally Once a day Taking Atorvastatin Calcium 40 MG Tablet TAKE 1 TABLET BY MOUTH EVERY DAY Orally Once a day Medication List reviewed and reconciled with the patient * Allergies: N .K.D.A.yes[Allergies Verified] Objective: * Vitals: H t: 72, Wt: 245, BMI:33.22, BP:132/60, Wt-k.13. weight is down 7 pounds since 06-13-24. * P ast Orders: L ab:PSA,Total (Free>4and<10) (Order Date - 11/28/2024) (Collection Date & Time - 11/28/2024 07:15 AM) Value Reference Range PSA,Total (Free>4and<10) 0.86 0.00-4.00 - ng/ mL L ab:UA ClnCatch+Micro w/rflx Cult (Order Date - 11/28/2024) (Collection Date & Time - 11/28/2024 07:15 AM) Value Reference Range Color Urine Yellow - Appearance Urine Clear - PH 6.0 5.0-9.0 - Glucose Urine UA Negative Negative - mg/dL Urine Blood Negative Negative - Specific [place] - Urine 1.025 1.005-1.025 - Urine Protein Trace Neg-Trace - mg/dL Urine Ketones Negative Negative - mg/dL Nitrite Urine Negative Negative - Leukocyte Esterase Urine Negative Negative - RBC Urine 0-2 0-2 - /HPF WBC Urine 0-5 0-5 - /HPF Squamous Epithelial Cell Urine 0-2 0-2 - /HP F Bacteria Urine None Seen None Seen - Hyaline Casts Urine 0-2 0-2 - /LPF L ab:Comprehensive [place]. Panel Fast (Order Date - 11/28/2024) (Collection Date & Time - 11/28/2024 07:15 AM) Value Reference Range Sodium 141 135-145 - mmol/L Bilirubin Total 0.8 0.0-1.0 - mg/dL Aspartate Amino Transferase 29 5-37 - U/L Alanine Aminotransferase 32 0-40 - U/L Total Protein 7.1 6.5-8.0 - g/dL Albumin Level 4.3 3.5-5.0 - g/dL Alkaline Phosphatase 72 39-117 - U/L Potassium 3.8 3.3-5.1 - mmol/L Chloride 107 96-108 - mmol/L Carbon Dioxide 27 22-29 - mmol/L Anion Gap 11 L 12-20 - Blood Urea Nitrogen 11 9-16 - mg/dL Creatinine 0.75 0.5-1.4 - mg/dL Estimated Glomerular Filt Rate > 60 - Glucose Fasting 88 60-99 - mg/dL Calcium 9.3 8.4-10.2 - mg/dL L ab:Complete Blood Count Auto Diff (Order Date - 11/28/2024) (Collection Date & Time - 11/28/2024 07:15 AM) Value Reference Range White Blood Count 5.7 4.8-10.8 - X10*3/uL Red Blood Count 4.85 4.60-5.80 - X10*6/uL Hemoglobin 15.5 14.0-18.0 - g/dl Hematocrit 47.1 42.0-52.0 - % Mean Corpuscular Volume 97.1 80.0-98.0 - fL Mean Corpuscular Hemoglobin 32.0 27.0-33.0 - pg Mean Corpuscular HGB Conc 32.9 31.0-36.0 - g/ dl Red Cell Distribution Width 12.7 11.0-16.0 - % Platelet Count 176 160-400 - X10*3/uL Mean Platelet Volume 10.6 9.4-12.4 - fL Neutrophils Percent Auto 61.0 45-73 - % Imm Gran Pct Auto 0.2 0.0-0.4 - % Lymphocytes Percent Auto 27.8 20-40 - % Monocytes Percent Auto 7.8 2-11 - % Eosinophils Percent Auto 2.3 0-4 - % Basophils Percent Auto 0.9 0-2 - % NRBC Pct Auto 0.0 0.0-0.2 - /100WBC Neutrophils Absolute Auto 3.5 2.0-8.3 - x10* 3/uL Imm Gran Abs Auto 0.01 0.00-0.03 - X10*3/uL Lymphocytes Absolute Auto 1.6 1.2-4.9 - X10* 3/uL Monocytes Absolute Auto 0.4 0.1-1.2 - X10*3/ uL Eosinophils Absolute Auto 0.1 0.0-0.4 - X10* 3/uL Basophils Absolute Auto 0.1 0.0-0.2 - X10*3/ uL NRBC Abs Auto 0.000 0.0-0.012 - X10*3/uL L ab:Lipid Panel (Order Date - 11/28/2024) (Collection Date & Time - 11/28/2024 07:15 AM) Value Reference Range Triglycerides 70 <150 - mg/dL Cholesterol 114 <200 - mg/dL LDL Cholesterol Calculated 61 <100 - mg/dL HDL Cholesterol 39 L >40 - mg/dL * Examination: G eneral Examination: GENERAL APPEARANCE: w ell developed, well nourished, in no acute distress. HEAD: n ormocephalic, atraumatic. EYES: p upils equal, round, reactive to light and accommodation, sclera non-icteric. EARS: n ormal. ORAL CAVITY: m ucosa moist. THROAT: c lear. NECK/THYROID: n inocencia supple, full range of motion, no cervical lymphadenopathy, no bruits. SKIN: w arm and dry, no suspicious lesions. HEART: r egular rate and rhythm, S1, S2 normal, no murmurs.? LUNGS: c lear to auscultation bilaterally. ABDOMEN: s oft, nontender, nondistended, bowel sounds present, normal, no organomegaly , no masses palpable. RECTAL EXAM: n ormal tone, no external hemorrhoids, no masses palpable, prostate normal, stool guaiac negative. MALE GENITOURINARY: n o testicular mass, testes descended bilaterally. EXTREMITIES: n o clubbing, cyanosis, or edema. NEUROLOGIC: n onfocal, motor strength normal upper and lower extremities, sensory exam intact. Assessment: * Assessment: 1. A nnual physical exam - Z00.00 (Primary) 2 . L umbar disc disease - M51.9 3 . H istory of adenomatous polyp of colon - Z86.010 4 . C olon cancer screening - Z12.11 5 . D epression screening - Z13.31 ? Plan: * Treatment: 2. L umbar disc disease Notes: is the probable cause of the difficulty with lifting leg at times. does not want to do anything about it 3. H istory of adenomatous polyp of colon Notes: due for colonoscopy in 2 4. C olon cancer screening L AB: Occult Blood, Stool, Guaiac (Collection Date & Time - 12/06/2024) N egative Value Reference Range O ccult Blood, Stool, Guaiac Neg Notes: guaiac negative??5.?Depression screening? Notes: negative screen?? * Procedure Codes: 8 2270 TEST FOR BLOOD, FECES * Preventive Medicine: Counseling: C are goal follow-up plan: Jeanine serratonseling for abnormal BMI provided?Yes, A nohemi Normal BMI Follow-up G iving encouragement to exercise. * Follow Up: 1 Year * * Sign off status: Completed true * Provider: Oren Paulino MD Date: 12/06/2024 Generated for Yakov briscoe/Ama/eTransmitting on: 0 06/05/2025 11:42 AM EDT History and Physical Notes * HPI (History of Present Illness) Category Sub-Category Detail Notes Category Not es Symptom(s) patient is a 64 yo male here for yearly evaluation with review of recent labs and follow up of chronic issues, / has a feeling in leg when he tries to take his boot off in the or. also with weakness Depression Screening PHQ-9 Little inte rest or pleasure in doing things: Not at all Feeling down, depressed, or hopeless: No t at all Trouble falling or staying asleep, or sl eeping too much: Not at all Feeling tired or having little energy: N ot at all Poor appetite or overeating: Not at all Feeling bad about yourself o r that you are a failure, or have let yourself or your family down: Not at all Trouble concentrating on thi ngs, such as reading the newspaper or watching television: Not at all Moving or speaking so slowly that other people could have noticed; or the opposite, being so fidgety or restless that you have been moving around a lot more than usual: Not at all Thoughts that you would be b sonny off or of hurting yourself in some way: Not at all Total Score: 0 Interpretation and Intervention Depression Suleman calero Findings: Negative Follow-Up for Depression: : review of PH Q-9 found negative result, no follow-up needed SDOH Questions SDOH Questions In the past year have you been worried about losing housing?: No In the past year have you or any family members you live with been unable to get any of the following when it was really needed? Check all that apply:: None Fall Risk History Have you had any falls with injury i n the past year?: No Have you had two or more falls in the st year?: No Communication Needs Communication Needs Does the patient have a hearing impairment: No Does the patient have a vision impairmen t?: Yes If yes, what is the vision impairment?: Glasses Does the patient have a cognition impair ment?: No Examination Category Sub-Category Detail Notes Category Not es General Examination GENERAL APPEARANCE: well dev eloped, well nourished, in no acute distress HEAD: normocephalic, atrau matic EYES: pupils equal, round, reactive to light and accommodation, sclera non-icteric EARS: normal THROAT: clear NECK/THYROID: neck supple, full ra nge of motion, no cervical lymphadenopathy, no bruits HEART: regular rate and rhy thm, S1, S2 normal, no murmurs LUNGS: clear to auscultatio n bilaterally ABDOMEN: soft, nontender, non distended, bowel sounds present, normal, no organomegaly , no masses palpable NEUROLOGIC: nonfocal, motor stre ngth normal upper and lower extremities, sensory exam intact SKIN: warm and dry, no franck picious lesions EXTREMITIES: no clubbing, cyanosi s, or edema MALE GENITOURINARY: no testicular mass, testes descended bilaterally RECTAL EXAM: normal tone, no exte rnal hemorrhoids, no masses palpable, prostate normal, stool guaiac negative ORAL CAVITY: mucosa moist
[2025-06-05 11:32] LABS: Alanine Aminotransferase 35 U/L (0-40); Albumin Level 4.5 g/dL (3.5-5.0); Alkaline Phosphatase 65 U/L (39-117); Aspartate Amino Transferase 28 U/L (5-37); Cholesterol 126 mg/dL (<200); HDL Cholesterol 36 mg/dL (>40); Total Protein 6.8 g/dL (6.5-8.0); Triglycerides 79 mg/dL (<150)
[2025-06-05 13:22] LABS: Reflex LDLD? No
== END 2025-06-05 07:16 | disposition home or self-care (01) ==
LOC: HO.LNP 07:15
PROVIDERS: Visit Provider Internal Medicine
DX: I65.29 Occlusion and stenosis of unspecified carotid artery (principal)
CPT/HCPCS: 80061; 80076